=== PATIENT | male | born 1960 | race Caucasian/White ===

== ENCOUNTER 2023-04-02 13:12 | Emergency (ER) | payer MEDICARE, OTHER, SELFPAY ==
[2023-04-02] VITALS (9 sets, daily range): BP systolic 179–202; BP diastolic 97–149; PULSE 51–77; O2SAT 95
--- NOTE | 2023-04-02 15:00 | W.ED.GENAD ---
Discharge Plan Disposition Patient Disposition: Home Discharge Details Clinical Impression: Retinal detachment, Elevated blood pressure reading Primary Care Provider: Tank Yee ED Provider: Syed Mcgowan Discharge Instructions Additional Instructions: After speaking with ophthalmology at [facility] they are recommending that you go straight there. It is okay to go by private vehicle and will be seen in their clinic. It is recommended that you go to the main entrance and at the information desk you asked the staff to page the ophthalmology resident on-call. If no one is present at the desk then please metal pickling equipment operator the nearby phone and dial [phone] and also ask for the ophthalmology resident on-call to be paged Referrals: [facility] [Outside] (Go immediately to [facility] at time of discharge) Medical Decision Making Patient presenting to the emergency department for painless vision loss. Patient reports that yesterday while at work he had a veil type vision change that then became almost full vision loss of the medial aspect of his right eye. Patient denies all other symptoms including headache any other neuro symptoms chest pain etc. Physical exam does show patient is hypertensive which she does report some anxiety over the issue, right medial vision loss with visualization of shadows only but peripheral vision is intact, left vision is normal, cranial nerve exam and remainder of exam is unremarkable. Bedside ultrasound was utilized and did show findings suggestive of a retinal detachment. Due to this I contacted [facility] ophthalmology and spoke with the resident who after consulting with his attending recommended patient be discharged from our facility and come by private vehicle to their clinic. Patient was agreeable to this plan of care. Of note patient did remain hypertensive throughout emergency department stay but was completely asymptomatic. Did discuss patient's hypertension with him and he states he had a primary care visit less than a month ago and had normal blood pressure and no need of medication. Patient was encouraged to monitor his blood pressure, return immediately if he becomes symptomatic otherwise follow-up with his primary care provider for elevated blood pressure readings. After discussion of diagnosis and plan of care patient has no further needs, questions, or concerns and states clear understanding to return to the emergency department for any worsening symptoms. This documentation was generated using [employer] system, please disregard any oddities of phrase or misspellings. HPI General Mode of arrival: ambulatory. Date/Time Provider Initiated Documentation: 04/02/23 13:18. Limitations to Documentation: no limitations. Information obtained by: patient and RN notes reviewed. History of Present Illness 63 year old M presents to the emergency department with the chief complaint of Painless vision loss-right medial, Patient started experiencing this day(s) (1) Patient notes no other symptoms.. Patient did receive the following treatments prior to arrival, none General Stated Complaint: EyeProblem KONSTANTIN: 3 Review of Systems Constitutional Constitutional: Denies headache(s) Eyes Eyes: Reports as per HPI, Reports blind spots, Reports blurry vision, Denies diplopia, Reports loss of vision and Denies eye pain ENT Ears, Nose, Mouth, and Throat: Denies dizziness and Denies headache(s) Cardiovascular Cardiovascular: Denies chest pain Neurologic Neurologic: Denies dizziness, Denies headache(s), Denies localized weakness and Reports loss of vision PFSH All Active Problems (Updated 04/02/23 @ 15:10 by Syed Mcgowan NP) Elevated blood pressure reading (Acute) Retinal detachment (Acute) Surgical History (Updated 04/02/23 @ 15:08 by Syed Mcgowan NP) History of cataract surgery Social History Smoking/Tobacco Use Status: Never Smoking risk assessment performed?: Yes Alcohol Intake: current Alcohol Intake frequency: a few times a week Drug use: Never Substance use type: does not use Housing: house Do you feel safe at home: Yes Do you feel safe in your relationship?: Yes Exam Const General: cooperative, healthy appearing, no acute distress and well groomed Orientation: alert, awake and oriented x3 HENMT Head: normal to inspection Ears: hearing grossly normal bilaterally and TM's normal bilaterally Mouth: oral mucosae normal and moist mucous membranes Throat: posterior oropharynx normal Eyes Visual Mascorro: abnormal by confrontation other (Medial right vision loss) Alignment and Position: alignment normal and position normal Periorbital: periorbital findings normal Eyelids: eyelids normal Conjunctivae: conjunctivae normal Sclera: sclerae normal Pupils: PERRL and other (Right accommodation abnormal) EOM: EOM intact bilaterally Neck Neck: normal visual inspection, full ROM, no lymphadenopathy and no meningeal signs Resp Effort & Inspection: normal respiratory effort and able to speak in complete sentences Auscultation: clear to auscultation bilaterally Cardio Rate: regular rate Rhythm: regular rhythm Heart Sounds: S1 normal and S2 normal Neuro General: patient alert, patient awake, patient oriented x3, gait normal, tone normal, moves all extremities, CN's II-XI intact bilaterally and not confused Cognition: normal cognition Speech: speech normal Motor: muscle tone normal throughout, strength 5/5 throughout, no pronator drift, no movement abnormalities noted and no fasciculations Sensory Exam: no sensory deficits noted Course Vital Signs Vital signs: Vital Signs Pulse 77 04/02/23 13:16 Blood Pressure 184/108 H 04/02/23 13:16 Pulse Oximetry 95 04/02/23 13:16 Pulse 75 04/02/23 14:16 Respiratory Effort Normal, Non-Labored 04/02/23 13:18 Blood Pressure 179/103 H 04/02/23 14:16 Blood Pressure Mean 128 04/02/23 14:16 Blood Pressure Position Sitting 04/02/23 13:16 Pulse Oximetry 95 04/02/23 13:16 Oxygen Delivery Method Room Air 04/02/23 13:16 Oxygen Flow Rate 0 04/02/23 13:16 PAWSS Have you Been Recently Intoxicated or Drunk Within the Last 30 days?: No Have you Ever Experienced Previous Episodes of Alcohol Withdrawal?: No Have you ever Experienced Withdrawal Seizures?: No Have you ever Experienced Delirium Tremens(DT)s?: No Have you ever undergone Alcohol Rehabilitation Treatment (i.e, inpt ot outpatient treatment programs)?: No Have you ever Experienced Blackouts?: No Have you ever Combined Alcohol with other Downers within the last 90 days?: No Have you ever Combined Alcohol with any other Substance of Abuse during the last 90 days?: No Positive Blood Alcohol level on Presentation? [PCS.BAL]: No Evidence of Increased Autonomic Activity (i.e. HR>120, tremor, sweating, agitation, nausea)?: No Result: 0
== END 2023-04-02 16:36 | disposition home or self-care (01) ==
PROVIDERS: Emergency Provider Nurse Practitioner Family; PCP Orthopaedic Surgery
DX: H33.21 Serous retinal detachment, right eye (principal); R03.0 Elevated blood-pressure reading, without diagnosis of hypertension
CPT/HCPCS: 99282; 99283; 99284

== ENCOUNTER → 2024-10-16 12:44 | Outpatient (BNVA) | payer MEDICARE, OTHER, SELFPAY | PROVIDERS: PCP Orthopaedic Surgery; Referring Provider Orthopaedic Surgery; Visit Provider Nurse Practitioner Gerontology | DX: R97.20 Elevated prostate specific antigen [PSA] (principal); N40.0 Benign prostatic hyperplasia without lower urinary tract symptoms; R39.9 Unspecified symptoms and signs involving the genitourinary system | CPT/HCPCS: 51798; 99204 ==

== ENCOUNTER → 2024-12-19 14:51 | Outpatient (BNVA) | payer MEDICARE, OTHER, SELFPAY | PROVIDERS: PCP Orthopaedic Surgery; Referring Provider Orthopaedic Surgery; Visit Provider Nurse Practitioner Gerontology | DX: R97.20 Elevated prostate specific antigen [PSA] (principal); N40.0 Benign prostatic hyperplasia without lower urinary tract symptoms | CPT/HCPCS: 99213 ==

== ENCOUNTER → 2025-01-18 12:33 | Outpatient (BNVA) | payer MEDICARE, OTHER, SELFPAY | PROVIDERS: PCP Orthopaedic Surgery; Referring Provider Orthopaedic Surgery; Visit Provider Nurse Practitioner Gerontology | DX: N40.0 Benign prostatic hyperplasia without lower urinary tract symptoms (principal); R97.20 Elevated prostate specific antigen [PSA] | CPT/HCPCS: 99215 ==

== ENCOUNTER → 2025-01-23 14:33 | Outpatient (BNVA) | payer MEDICARE, OTHER, SELFPAY | PROVIDERS: PCP Orthopaedic Surgery; Referring Provider Orthopaedic Surgery; Visit Provider Urology | DX: N40.0 Benign prostatic hyperplasia without lower urinary tract symptoms (principal); C61 Malignant neoplasm of prostate | CPT/HCPCS: 76872 ==

== ENCOUNTER 2025-01-23 15:29 | Outpatient (REF) | payer MEDICARE, OTHER, SELFPAY ==
--- NOTE | 2025-01-23 15:00 | PROST_PTH ---
PATIENT: Juan Martínez LOC: [facility] U#:[id number] AGE/SX: 64/M ROOM: RE01/23/[address]: Randal Madden MD : 1960 BED: DIS: 01/23/2025 SPEC #: [id number] RECD: 01/23/25 17:43 STATUS: JEANETTE RERiley #: [id number] EARNEST: 01/23/25 15:[address]: Randal Madden DEPT: Surgical Specimen RECD BY: Judith Valenzuela ENTERED: 01/23/25 17:45 SP TYPE: PROST OTHR DR: Tank Yee Tissues: 1 - PROSTATE NEEDLE BIOPSY 2 - PROSTATE NEEDLE BIOPSY 3 - PROSTATE NEEDLE BIOPSY 4 - PROSTATE NEEDLE BIOPSY 5 - PROSTATE NEEDLE BIOPSY 6 - PROSTATE NEEDLE BIOPSY 7 - PROSTATE NEEDLE BIOPSY 8 - PROSTATE NEEDLE BIOPSY 9 - PROSTATE NEEDLE BIOPSY 10 - PROSTATE NEEDLE BIOPSY 11 - PROSTATE NEEDLE BIOPSY 12 - PROSTATE NEEDLE BIOPSY Procedures: GROSS AND MICRO LEVEL 4 IMMUNOPEROXIDASE STAIN Comments: [id number]
== END 2025-01-23 15:30 | disposition home or self-care (01) ==
LOC: LBN 15:29
PROVIDERS: PCP Orthopaedic Surgery; Visit Provider Urology
DX: C61 Malignant neoplasm of prostate (principal); R97.20 Elevated prostate specific antigen [PSA]
CPT/HCPCS: 88305; 88361

== ENCOUNTER → 2025-02-05 14:30 | Outpatient (BNVA) | payer MEDICARE, OTHER, SELFPAY | PROVIDERS: PCP Orthopaedic Surgery; Referring Provider Orthopaedic Surgery; Visit Provider Urology | DX: C61 Malignant neoplasm of prostate (principal); R22.41 Localized swelling, mass and lump, right lower limb; R79.89 Other specified abnormal findings of blood chemistry; R31.9 Hematuria, unspecified | CPT/HCPCS: 99215 ==

== ENCOUNTER 2025-02-06 09:04 | Outpatient (CLI) | payer MEDICARE, OTHER, SELFPAY ==
--- NOTE | 2025-02-06 09:00 | DI.US_ITS ---
Exam(s) US LOWER EXTREMITY VENOUS RT EXAM: US LOWER EXTREMITY VENOUS RT CLINICAL HISTORY: r/o DVT, rt leg swelling, M79.89 TECHNIQUE: Right lower extremity venous ultrasound performed using grayscale, color-flow, and spectral Doppler analysis. COMPARISON: No exams were available for comparison FINDINGS: The right common femoral, femoral and popliteal veins demonstrate normal compressibility, augmentation, and color Doppler. The posterior tibial veins are patent. The saphenofemoral junction is unremarkable. There is a 3.6 x 0.5 x 2.6 cm popliteal cyst. The soft tissues are unremarkable. IMPRESSION: 1. No evidence of a right lower extremity DVT. 2. Small popliteal cyst. DATA REPOSITORY:
== END 2025-02-06 09:24 ==
LOC: DI 09:05
PROVIDERS: PCP Orthopaedic Surgery; Visit Provider Urology
DX: M79.89 Other specified soft tissue disorders (principal)
CPT/HCPCS: 93971

== ENCOUNTER → 2025-04-24 07:57 | Outpatient (BNVA) | payer MEDICARE, OTHER, SELFPAY | PROVIDERS: PCP Orthopaedic Surgery; Referring Provider Orthopaedic Surgery; Visit Provider Urology | DX: C61 Malignant neoplasm of prostate (principal) | CPT/HCPCS: 99213 ==